=== PATIENT | male | born 1975 | race Caucasian/White ===

== ENCOUNTER 2024-09-12 16:17 | Emergency (ER) | payer SELFPAY ==
[2024-09-12 16:23] VITALS: BP 134/81; PULSE 109; RESP 16; TEMP 36.7; O2SAT 95; BMI 32.8
[2024-09-12 16:24] LABS: Glucose Point of Care 567 mg/dL (70-110)
--- NOTE | 2024-09-12 16:36 | ED_ITS ---
HPI - Recheck/Abnormal Lab/Rx 2 General: Chief Complaint: Recheck/Abnormal Lab/Rx Stated Complaint: high blood sugar Time Seen by Provider: 09/12/24 16:28 History of Present Illness: 49-year-old male patient comes in today for complaints of elevated blood glucose. Patient reports he has been having some increased frequency in urination over the last 2 weeks. Patient reports no other significant symptoms. Patient gone to urgent care and was noted to have elevated blood glucose. Patient has had no prior instances with blood glucose being elevated. 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 Patient appears nontoxic. Patient reports no other medical problems. Related Data Previous Rx's Medication Instructions Recorded metformin 500 mg tablet,extended 500 mg PO BID #60 tabs 09/12/24 release 24 hr Allergies Allergy/AdvReac Type Severity Reaction Status Date / Time No Known Allergies Allergy Verified 09/12/24 16:27 Review of Systems 2 General: Reports: 10 or more systems reviewed and unremarkable except in HPI and below PFSH ED 2 PFSH: Social History Smoking and tobacco/nicotine status: never used tobacco/nicotine (dips) Physical Exam 2 Const: COMMON NORMALS: alert HENMT: COMMON NORMALS: normocephalic HEAD & SCALP: normocephalic Neck/C-Spine: COMMON NORMALS: full ROM Resp: COMMON NORMALS: normal respiratory effort and clear to auscultation bilaterally AUSCULTATION: clear to auscultation bilaterally Cardio: COMMON NORMALS: regular rate RATE: regular rate Back/Pelvis: COMMON NORMALS: thoracic and lumbar spine normal to inspection Extremity: COMMON NORMALS: full ROM Neuro: SENSORIUM/ORIENTATION: Yes alert Skin: COMMON NORMALS: turgor normal GENERAL SKIN EXAM: turgor normal Course 2 Vital Signs: Vital signs: Vital Signs Temperature 98.0 F 09/12/24 16:23 Pulse Rate 101 H 09/12/24 17:49 Respiratory Rate 16 09/12/24 16:23 Blood Pressure 113/82 09/12/24 17:49 Pulse Oximetry 96 09/12/24 17:49 Oxygen Delivery Me thod Room Air 09/12/24 16:23 MDM - Recheck/Abnormal Lab/Rx Medical Decision Making 49-year-old male patient comes in with elevated blood glucose. Patient appears nontoxic. Patient is alert and oriented. Patient's only complaint was urinary frequency. Differential diagnosis includes but not limited to hyperglycemia, diabetic ketoacidosis, electrolyte imbalance. CBC was unremarkable. CMP noted a sodium of 135, potassium 3.9, and glucose 642. ABG was unremarkable for any signs of acidosis. Patient was negative for serum ketones. Anion gap was normal. Patient was given 2 L of IV fluids and 10 units of regular insulin. Blood glucose come down to 316. Patient be discharged home with metformin and recommendations to follow-up with primary care. Lab Data 09/12/24 16:37 09/12/24 16:37 Laboratory Results WBC 5.98 10^3/uL (3.29-11.43) 09/12/24 16:37 RBC 4.88 10^6/uL (3.85-5.65) 09/12/24 16:37 Hgb 14.40 g/dL (11.27-16.99) 09/12/24 16:37 Hct 41.4 % (37-53) 09/12/24 16:37 MCV 84.8 fl (82-101) 09/12/24 16:37 MCH 29.5 pg (27-33) 09/12/24 16:37 MCHC 34.8 g/dL (30-55) 09/12/24 16:37 RDW 11.9 % (12.1-15.1) L 09/12/24 16:37 Plt Count 213 10^3/cmm (157-399) 09/12/24 16:37 MPV 11.3 fL (7.4-10.4) H 09/12/24 16:37 Neut % (Auto) 64.6 % 09/12/24 16:37 Lymph % (Auto) 25.8 % 09/12/24 16:37 Frontier % (Auto) 7.4 % 09/12/24 16:37 Eos % (Auto) 1.3 % 09/12/24 16:37 Baso % (Auto) 0.7 % 09/12/24 16:37 Neut # (Auto) 3.87 10^3/uL (1.8-7.7) 09/12/24 16:37 Lymph # (Auto) 1.5 10^3/uL (0.8-4.8) 09/12/24 16:37 Frontier # (Auto) 0.4 10^3/uL (0.2-0.9) 09/12/24 16:37 Eos # (Auto) 0.1 10^3/uL (0.0-0.8) 09/12/24 16:37 Baso # (Auto) 0.0 10^3/uL (0.0-0.1) 09/12/24 16:37 Nucleated RBC % (auto) 0 % 09/12/24 16:37 Nucleated RBCs # 0.0 /100WBC 09/12/24 16:37 Specimen Type Arterial 09/12/24 16:35 Sample Site Radial, left 09/12/24 16:35 ABG pH 7.44 (7.35-7.45) 09/12/24 16:35 ABG pCO2 39.0 mmHg (35-45) 09/12/24 16:35 ABG pO2 66.3 mmHg (80.0-100.0) L 09/12/24 16:35 ABG PO2/FiO2 Ratio 315 09/12/24 16:35 ABG HCO3 26.2 mmol/L (22-26) H 09/12/24 16:35 ABG O2 Saturation 94.4 09/12/24 16:35 ABG Base Excess 1.9 mmol/L (-2.0-2.0) 09/12/24 16:35 Feliciano Test Pos 09/12/24 16:35 A-a O2 Gradient 4.5 mmHg (5-10) L 09/12/24 16:35 Hematocrit 43.8 % (42-52) 09/12/24 16:35 Hgb O2 Saturation 92.5 % (95-100) L 09/12/24 16:35 Carboxyhemoglobin 1.1 %THgb (0.4-20.1) 09/12/24 16:35 Methemoglobin 0.9 % (0.4-1.5) 09/12/24 16:35 Total Hemoglobin 14.3 g/dL (14-18) 09/12/24 16:35 Sodium 140.0 mmol/L (131-143) 09/12/24 16:35 Potassium 3.6 mmol/L (3.5-5.0) 09/12/24 16:35 Glucose 629.0 mg/dL (70-115) H 09/12/24 16:35 Ionized Calcium 1.2 mmol/L (1.1-1.4) 09/12/24 16:35 O2 Delivery Device Room air 09/12/24 16:35 FiO2 21.0 % 09/12/24 16:35 Valve Fitter ID glc 09/12/24 16:35 Sodium 135 mmol/L (136-145) L 09/12/24 16:37 Potassium 3.9 mmol/L (3.5-5.1) 09/12/24 16:37 Chloride 95 mmol/L (98-107) L 09/12/24 16:37 Carbon Dioxide 25 mmol/L (22-29) 09/12/24 16:37 Anion Gap 18.9 (5-19) 09/12/24 16:37 BUN 11 mg/dL (6-20) 09/12/24 16:37 Creatinine 1.0 mg/dL (0.7-1.2) 09/12/24 16:37 GFR Calculation 79.8 mL/min (90-130) L 09/12/24 16:37 Glucose 642 mg/dL (65-115) H* 09/12/24 16:37 POC Glucose 316 mg/dL (70-110) H 09/12/24 18:30 Calculated Osmolality 310 mOsm/kg (285-295) H 09/12/24 16:37 Calcium 9.7 mg/dL (8.5-10.5) 09/12/24 16:37 Total Bilirubin 0.6 mg/dL (0.15-1.2) 09/12/24 16:37 AST 31 U/L (0-40) 09/12/24 16:37 ALT 53 U/L (0-41) H 09/12/24 16:37 Alkaline Phosphatase 140 U/L (40-130) H 09/12/24 16:37 Total Protein 7.4 g/dL (6.6-8.7) 09/12/24 16:37 Albumin 4.3 g/dL (3.5-5.2) 09/12/24 16:37 Globulin 3.1 g/dL (1.3-4.6) 09/12/24 16:37 Serum Ketones Negative (Negative) 09/12/24 16:37 No radiology studies performed this visit Discharge Plan Discharge Patient Disposition: Home Clinical Impression: Hyperglycemia Condition: Stable Prescriptions: New metformin 500 mg tablet extended release 24 hr 500 mg PO BID Qty: 60 0RF Discharge Orders: Discharge ED (Routine); Ordered 09/12/24 Ordered By: Frandy Wright Discharge Diet: Diabetic Discharge Activity: Increase activity as tolerated Patient Instructions: Type 2 Diabetes in Adults: New Diagnosis (DC) Activity Restrictions/Additional Instructions: Eat a healthy diet monitoring concentrated sweets and processed foods. Drink plenty water and fluids. Give up sugary beverages. Follow-up with primary care for further instructions and recommendations of treatment. Start with metformin 500 mg extended release tablet 1 tablet twice a day with your morning and evening meal. This medication is usually well-tolerated but may cause some increasing gas and loose stools. This usually resolves within the first month of medication start. Return to ER for new concerns. Stand Alone Forms: Work/School Release Coding Level of Care Code ED Balance Wheel Hand Filer for Griselda Cornejo
[2024-09-12] MEDS: sodium chloride 0.9% 1,000 ML 999 ML IV ×2 (16:39→16:40)
[2024-09-12 16:42] LABS: Basophils % 0.7 %; Eosinophils # 0.1 10^3/uL (0.0-0.8); Eosinophils % 1.3 %; Hematocrit 41.4 % (37-53); Lymphocytes # 1.5 10^3/uL (0.8-4.8); Lymphocytes % 25.8 %; Mean Corpuscular HGB Conc 34.8 g/dL (30-55); Mean Corpuscular Hemoglobin 29.5 pg (27-33); Mean Corpuscular Volume 84.8 fl (82-101); Mean Platelet Volume 11.3 fL (7.4-10.4); Monocytes # 0.4 10^3/uL (0.2-0.9); Monocytes % 7.4 %; Neutrophils # 3.87 10^3/uL (1.8-7.7); Neutrophils % 64.6 %; Nucleated Red Blood Cells % 0 %; Platelet Count 213 10^3/cmm (157-399); Red Blood Count 4.88 10^6/uL (3.85-5.65); Red Cell Distribution Width 11.9 % (12.1-15.1); White Blood Count 5.98 10^3/uL (3.29-11.43)
[2024-09-12 16:47] LABS: ABG PH Result 7.44 (7.35-7.45); Alveolar-Arterial Oxygen Gradi 4.5 mmHg (5-10); Arterial Blood Gas Hematocrit 43.8 % (42-52); Base Excess ABG 1.9 mmol/L (-2.0-2.0); Blood Gas Allen Test Pos; Blood Gas Operator Identificat glc; Blood Gas Sample Site Radial, left; Blood Gas Sample Type Arterial; Carboxyhemoglobin 1.1 %THgb (0.4-20.1); HCO3 ABG 26.2 mmol/L (22-26); HGB O2 Sat 92.5 % (95-100); Ionized Calcium Level - ABG 1.2 mmol/L (1.1-1.4); Methemoglobin 0.9 % (0.4-1.5); Oxygen Device ROOM AIR; Oxygen Saturation ABG 94.4; PO2 ABG 66.3 mmHg (80.0-100.0); PO2 FiO2 Ratio Arterial Blood 315; Potassium Level - ABG 3.6 mmol/L (3.5-5.0); Total Hemoglobin 14.3 g/dL (14-18)
[2024-09-12 16:50] LABS: Ketone (Acetest) Serum Negative (Negative)
[2024-09-12 16:58] LABS: Alanine Aminotransferase 53 U/L (0-41); Albumin Level 4.3 g/dL (3.5-5.2); Alkaline Phosphatase 140 U/L (40-130); Anion Gap 18.9 (5-19); Aspartate Amino Transferase 31 U/L (0-40); Blood Urea Nitrogen 11 mg/dL (6-20); Calcium 9.7 mg/dL (8.5-10.5); Carbon Dioxide 25 mmol/L (22-29); Chloride 95 mmol/L (98-107); Creatinine Clr Calc Pharmacy 112.2114; Globulin 3.1 g/dL (1.3-4.6); Glomerular Filtration Rate 79.8 mL/min (90-130); Osmolality Calculated 310 mOsm/kg (285-295); Potassium 3.9 mmol/L (3.5-5.1); Sodium 135 mmol/L (136-145); Total Bilirubin 0.6 mg/dL (0.15-1.2); Total Protein 7.4 g/dL (6.6-8.7)
[2024-09-12 17:01] LABS: Glucose 642 mg/dL (65-115)
[2024-09-12] MEDS: insulin regular-human 100 units/1 mL 10 UNIT IVP (17:22)
[2024-09-12 17:25] LABS: Glucose Point of Care 536 mg/dL (70-110)
[2024-09-12 17:49] VITALS: BP 113/82; PULSE 101; O2SAT 96
[2024-09-12 18:32] LABS: Glucose Point of Care 316 mg/dL (70-110)
[2024-09-12 18:50] VITALS: BP 113/79; PULSE 98; O2SAT 93
== END 2024-09-12 18:55 | disposition home or self-care (01) ==
PROVIDERS: Emergency Medicine; Emergency Provider Nurse Practitioner Family
DX: R73.9 Hyperglycemia, unspecified (principal)
CPT/HCPCS: 36416; 36600; 80051; 80053; 81000; 82009; 82330; 82805; 82962; 85025; 96374; 99284; J1815; J7030